=== PATIENT | male | born 1950 | race Caucasian/White ===

== ENCOUNTER → 2018-06-07 | Outpatient (CLI) | payer MEDICARE, OTHER | LOC: GMAM 11:34 | PROVIDERS: ATTEND Family Medicine | DX: Z12.5 Encounter for screening for malignant neoplasm of prostate (principal) ==

== ENCOUNTER 2018-06-13 08:45 | Emergency (ER) | payer MEDICARE, OTHER ==
--- NOTE | 2018-06-13 09:24 | ED.PDOC ---
History of Present Illness - General Chief Complaint: Abdominal Pain Stated Complaint: Abdominal discomfort Time Seen by Provider: 06/13/18 08:55 Source: patient Exam Limitations: no limitations - History of Present Illness Initial Comments: Patient presents with abdominal pain for about 14 hours. Sudden onset, supraumbilical, radiates to LUQ, pressure in nature, constant but intermittent in intensity, no exacerbating nor alleviating factors, associated with decreased appetite, no previous episodes. Last meal was this morning but was less than normal. Last BM was 6 hours ago and was normal. 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 Denies cardiac history. No other complaints. Timing/Duration: other - 14 hours Severity: moderate Improving Factors: nothing Worsening Factors: cold therapy Associated Symptoms: other - see HPI Allergies/Adverse Reactions: Allergies Quinolones Allergy (Verified 06/13/18 08:58) Diarrhea Home Medications: Ambulatory Orders Aripiprazole 5 mg PO DAILY 06/13/18 Duloxetine HCl 60 mg PO BEDTIME 06/13/18 Esomeprazole Magnesium [Nexium] 40 mg PO DAILY 06/13/18 Ondansetron [Zofran Odt] 4 mg PO Q6HR #20 tab 06/13/18 Rosuvastatin Calcium 10 mg PO BEDTIME 06/13/18 Sucralfate Tab [Carafate Tab] 1 gm PO AC #60 tablet 06/13/18 Tramadol HCl 50 mg PO Q6HRS #30 tab 06/13/18 traZODone HCL [Desyrel] 100 mg PO BEDTIME 06/13/18 Review of Systems - Review of Systems Constitutional: States: no symptoms reported EENTM: States: no symptoms reported Respiratory: States: no symptoms reported Cardiology: States: no symptoms reported Gastrointestinal/Abdominal: States: see HPI Genitourinary: States: no symptoms reported Musculoskeletal: States: no symptoms reported Skin: States: no symptoms reported Neurological: States: no symptoms reported Endocrine: States: no symptoms reported Hematologic/Lymphatic: States: no symptoms reported Past Medical History (General) - Patient Medical History Hx Stroke: No Hx Cardiac Disorders: Yes - hyperlipidemia Hx Congestive Heart Failure: No Hx Diabetes: No Hx Gastroesophageal Reflux: Yes - esophageal dilatations in the past - Vaccination History Hx Influenza Vaccination: Yes - 2017 Hx Pneumococcal Vaccination: Yes - 2019 - Social History Hx Tobacco Use: Yes - Smokes a pipe Hx Alcohol Use: Yes - Infrequent use Family Medical History - Family History Father Living Status: Hx Family Hypertension: Yes Hx Family Cancer: Yes - Lung CA Physical Exam - Physical Exam General Appearance: Alert Eye Exam: bilateral normal Ears, Nose, Throat: normal ENT inspection Neck: non-tender, full range of motion, supple Respiratory: lungs clear, normal breath sounds Cardiovascular/Chest: normal peripheral pulses, regular rate, rhythm, irregularly irregular Gastrointestinal/Abdominal: normal bowel sounds, tenderness - TTP just inferior to the sternum. No guarding nor rebound tenderness. Negative Horn's sign. Negative Rovsing's sign. Back Exam: normal inspection, no CVA tenderness Extremity: normal range of motion, non-tender, normal inspection Neurologic: no motor/sensory deficits, alert, normal mood/affect, oriented x 3 Skin Exam: normal color Lymphatic: no adenopathy Progress - Progress Progress: 06/13/18 13:38 Laboratory Tests 06/13/18 06/13/18 06/13/18 09:18 09:18 09:18 WBC 10.0 RBC 5.08 Hgb 16.0 Hct 48.2 MCV 94.7 H MCH 31.4 H MCHC 33.2 RDW 13.6 Plt Count 284 MPV 8.0 Absolute Neuts (auto) 7.10 H Absolute Lymphs (auto) 2.20 Absolute Monos (auto) 0.50 Absolute Eos (auto) 0.10 Absolute Basos (auto) 0.00 Neutrophils % 71.2 Lymphocytes % 22.3 Monocytes % 5.0 Eosinophils % 1.0 Basophils % 0.5 PT 9.9 INR 0.99 PTT (SP) Sodium 134 L Potassium 3.6 Chloride 101 Carbon Dioxide 25 Anion Gap 11.6 L BUN 15 Creatinine 1.04 BUN/Creatinine Ratio 14.4 Random Glucose 124 H Serum Osmolality 270.5 L Calcium 9.1 Magnesium Total Bilirubin 1.0 AST 27 ALT 34 Alkaline Phosphatase 50 Creatine Kinase CK-MB (CK-2) CK-MB (CK-2) % Troponin I B-Natriuretic Peptide Serum Total Protein 7.3 Albumin 4.3 Globulin 3.0 Albumin/Globulin Ratio 1.4 Lipase 38 Urine Color Urine Appearance Urine pH Ur Specific [place] Urine Protein Urine Glucose (UA) Urine Ketones Urine Blood Urine Nitrite Urine Bilirubin Urine Urobilinogen Ur Leukocyte Esterase Urine RBC Urine WBC Ur Epithelial Cells Urine Bacteria 06/13/18 06/13/18 06/13/18 09:19 09:19 10:04 WBC RBC Hgb Hct MCV MCH MCHC RDW Plt Count MPV Absolute Neuts (auto) Absolute Lymphs (auto) Absolute Monos (auto) Absolute Eos (auto) Absolute Basos (auto) Neutrophils % Lymphocytes % Monocytes % Eosinophils % Basophils % PT INR PTT (SP) 26.7 Sodium Potassium Chloride Carbon Dioxide Anion Gap BUN Creatinine BUN/Creatinine Ratio Random Glucose Serum Osmolality Calcium Magnesium 2.0 Total Bilirubin AST ALT Alkaline Phosphatase Creatine Kinase 139 CK-MB (CK-2) 3.6 CK-MB (CK-2) % 2.59 Troponin I < 0.02 B-Natriuretic Peptide 95.5 Serum Total Protein Albumin Globulin Albumin/Globulin Ratio Lipase Urine Color Yellow Urine Appearance Clear Urine pH 8.5 H Ur Specific [place] 1.020 Urine Protein Negative Urine Glucose (UA) Negative Urine Ketones 15 H Urine Blood Trace-intact H Urine Nitrite Negative Urine Bilirubin Negative Urine Urobilinogen 0.2 Ur Leukocyte Esterase Negative Urine RBC 0-1 Urine WBC 0 Ur Epithelial Cells 0 Urine Bacteria 0 EKG read by me showed atrial fibrillation with normal rate. CT chest/ab/pelvis were negative. Atrial fibrillation is likely an incidental finding. Abdominal pain improved with a GI cocktail. I spoke with Dr. Marie about this patient and he agreed to see the patient tomorrow in clinic. It was agreed that no anti-coagulants would be started at this time since we don't have a definitive answer to the abdominal pain. Given the patient's history of drinking large amounts of diet soda, it is most likely gastritis. I have advised the patient to also see his pcp regarding a possible upper endoscopy. RX for Tramadol and Carafate given. Patient to continue on his Nexium. Care instructions given. E.R. warnings given. Questions were elicited and answered. Patient voiced understanding and agreement with the plan. Departure - Departure Clinical Impression: Abdominal pain, Gastritis, Atrial fibrillation Disposition: Discharge to Home or Self Care Condition: Good Departure Forms: ED Discharge - Pt. Copy, Patient Portal Self Enrollment Instructions: DI for Abdominal Pain-Adult, Gastritis (DC) Diet: other - Stop drinking sodas. Decrease amount of foods that are high in fats. No alcohol or tobacco. Referrals: Michael Moralez MD [Primary Care Provider] - 1-2 Weeks Prescriptions: Ondansetron [Zofran Odt] 4 mg PO Q6HR #20 tab Tramadol HCl 50 mg PO Q6HRS #30 tab Sucralfate Tab [Carafate Tab] 1 gm PO AC #60 tablet Home Medications: Ambulatory Orders Aripiprazole 5 mg PO DAILY 06/13/18 Duloxetine HCl 60 mg PO BEDTIME 06/13/18 Esomeprazole Magnesium [Nexium] 40 mg PO DAILY 06/13/18 Ondansetron [Zofran Odt] 4 mg PO Q6HR #20 tab 06/13/18 Rosuvastatin Calcium 10 mg PO BEDTIME 06/13/18 Sucralfate Tab [Carafate Tab] 1 gm PO AC #60 tablet 06/13/18 Tramadol HCl 50 mg PO Q6HRS #30 tab 06/13/18 traZODone HCL [Desyrel] 100 mg PO BEDTIME 06/13/18 Additional Instructions: Go to your appointment with Dr. Marie tomorrow at 12:30. See your regular doctor this week about further evaluation of your stomach pain. Take medications as prescribed. Return to the E.R. for a temperature above 100.4
[2018-06-13] MEDS ORDERED: MORPHINE SULFATE INJ 10 MG/ML VIAL IV ONE (10:34)
--- NOTE | 2018-06-13 10:35 | RAD ---
Study: Single Frontal Radiograph of the Chest. Indication:upper abdominal pain Comparison: None. Impression: Cardiomegaly with mild interstitial edema. No consolidation, pleural effusion, or pneumothorax. No acute osseous abnormality. Electronically signed by: Kunal Landry MD 06/13/2018 10:32 AM [facility]
--- NOTE | 2018-06-13 11:24 | CT ---
EXAM DESCRIPTION: Abdomen/Pelvis w/Contrast CLINICAL HISTORY: abdominal pain COMPARISON: None TECHNIQUE: Postcontrast multidetector CT imaging of the abdomen and pelvis was performed. Multiplanar reconstructions were generated. This exam was performed according to our departmental dose-optimization program which includes automated exposure control, adjustment of the mA and/or kV according to patient size and/or use of iterative reconstruction technique. FINDINGS: Lung bases are unremarkable. No focal liver lesions are demonstrated. Diffuse mild fatty infiltration of the liver is noted with focal fatty sparing along the gallbladder fossa and along the falciform ligament. Gallbladder and biliary system are unremarkable. No pancreatic mass or inflammation is demonstrated. The spleen is not demonstrated. Multiple splenules are seen in the left upper quadrant. Correlate for prior splenic trauma and/or surgery. Bilateral adrenal glands are normal in appearance. Benign exophytic cyst of the right kidney. No hydronephrosis or obstructive uropathy. No abnormal bladder mucosal enhancement. The prostate is unremarkable. Rare diverticula of the redundant colon. No gastrointestinal obstruction or inflammation is demonstrated. Normal appendix. No vascular pathology is evident. Lipomatous hypertrophy of the bilateral inguinal canals. Ventral abdominal wall is intact. No lymphadenopathy, free intraperitoneal fluid or gas. Bilateral L5 pars interarticularis defects without listhesis. No aggressive lytic or blastic osseous lesions. IMPRESSION: No CT findings explain the patient's presenting symptoms. Electronically signed by: Bassam Rey MD 06/13/2018 11:22 AM [employer]
[2018-06-13] MEDS ORDERED: ALUM & MAG HYDROX-SIMETHICONE 30 ML, LIDOCAINE VISCOUS 2% 15 ML PO ONE ×2 (11:50)
[2018-06-13] MEDS ORDERED: ALUM & MAG HYDROX-SIMETHICONE 30 ML UD ONE (11:51)
[2018-06-13] MEDS ORDERED: LIDOCAINE HCL 2% (MOUTH-THROAT) 15 ML UD ONE (11:51)
--- NOTE | 2018-06-13 13:17 | CT ---
EXAM DESCRIPTION: CT angiogram chest with contrast CLINICAL HISTORY: Chest pain. Shortness of breath COMPARISON: None Available. TECHNIQUE: Spiral CT with multiplanar reformatted images. 3-D reconstructions . 75 mL intravenous iodinated nonionic contrast This exam was performed according to our departmental dose-optimization program, which includes automated exposure control, adjustment of the mA and/or kV according to patient size and/or use of iterative reconstruction technique. FINDINGS: Mild dependent atelectasis. No pulmonary edema, alveolar consolidation or effusion. Subcentimeter lymph nodes in the mediastinum, likely reactive Normal contrast enhancement of the cardiac chambers and aorta. No aneurysm or dissection Normal contrast enhancement of the pulmonary arteries. No filling defect to suggest pulmonary embolism No mass or adenopathy in the visualized upper abdomen. No normal spleen. Several small splenules in the left upper quadrant No acute bony abnormality IMPRESSION: Normal CT angiogram chest. No pulmonary embolism Electronically signed by: Michael Jacobo MD 06/13/2018 1:14 PM [employer]
[2018-06-13 14:00] VITALS: BP 168/94; TEMP 99.1; O2SAT 95
== END 2018-06-13 14:02 | disposition home or self-care (01) ==
LOC: ER 08:45
DX: K29.70 Gastritis, unspecified, without bleeding (principal); I48.91 Unspecified atrial fibrillation; E78.5 Hyperlipidemia, unspecified; K21.9 Gastro-esophageal reflux disease without esophagitis; F17.290 Nicotine dependence, other tobacco product, uncomplicated; Z79.899 Other long term (current) drug therapy; Z88.8 Allergy status to other drugs, medicaments and biological substances
CPT/HCPCS: 36415; 71045; 71275; 74177; 80053; 81001; 82550; 82553; 83690; 83735; 83880; 84484; 85025; 85610; 85730; 93005; J2270

== ENCOUNTER → 2018-06-22 | Outpatient (CLI) | payer MEDICARE, OTHER | LOC: GMAM 11:12 | PROVIDERS: ATTEND Family Medicine | DX: I48.2 Chronic atrial fibrillation (principal) ==

== ENCOUNTER → 2018-07-05 | Outpatient (CLI) | payer MEDICARE, OTHER ==
--- NOTE | 2018-07-05 15:56 | CT ---
EXAM DESCRIPTION: Chest w/wo Contrast : Computed Tomography. CLINICAL HISTORY: 67 years Male PNEUMONIA. Recent COMPARISON: CTA of the chest 06/13/2018. TECHNIQUE: Spiral-axial scans at 5 x 5 mm intervals through the lungs and thorax without and with IV contrast. 2.5 x 5 mm lung algorithm axial reconstructions without and with IV contrast. Coronal and sagittal 2.0 Mm reconstructions, post IV contrast. No adverse reactions. Total Exam DLP: 1260.37 mGy-cm. This exam was performed according to our departmental dose-optimization program which includes automated exposure control, adjustment of the mA and/or kV according to patient size and/or use of iterative reconstruction technique; to reduce radiation dose to as low as reasonably achievable (ALARA). Nodule measurements under 10 mm are given as mean value of 3 axes diameters. FINDINGS: Lungs and large airways: Bilateral lower lobe posterior dependent atelectasis. This has decreased since the prior study. Minimal bilateral perihilar peribronchial wall cuffing. No abnormal nodules or masses. No focal infiltrates. Pleural spaces: Bilateral apical pleural thickening and bilateral focal pleural thickening. No bilateral effusion or pneumothorax. Mediastinum and Nancy: No enlarged lymph nodes or soft tissue masses. Great vessels and Heart: Early atherosclerotic calcification in the aortic arch, and in the coronary vessels. Persistent cardinal vein or left superior vena cava emptying into the right atrium.. Minimal narrowing of the distal left innominate vein just distal to this cardinal vein. Also seen on the prior study. Soft tissues of neck base, axillae, and chest wall: Negative. Upper abdomen: No free fluid or free air. No fatty stranding. Included adrenal glands normal size and density. Splenules are visualized but the spleen is absent. Gallbladder partially visualized. Possible small hiatal hernia. Osseous structures: Minimal arthrosis bilateral sternoclavicular joints. Minimal arthrosis right glenohumeral joint. IMPRESSION: 1. Minimal posterior dependent atelectasis in the lower lobes has decreased compared to the prior study. Perihilar peribronchial wall thickening is stable. No mass or abnormal nodule. No focal infiltrate. 2. Remainder the study is unremarkable. Electronically signed by: Bhavin Najera MD 07/05/2018 3:53 PM RN HEART
== END ==
LOC: CT 09:00
PROVIDERS: ATTEND Family Medicine
DX: J18.9 Pneumonia, unspecified organism (principal)

== ENCOUNTER → 2018-08-04 | Outpatient (CLI) | payer MEDICARE, OTHER | LOC: SL 20:56 | PROVIDERS: ATTEND Family Medicine | DX: G47.33 Obstructive sleep apnea (adult) (pediatric) (principal) ==

== ENCOUNTER 2018-12-12 05:45 | Day surgery (SDC) | payer MEDICARE, OTHER ==
[2018-12-12] MEDS ORDERED: PROPARACAINE 0.5% OPHTH SOL 15 ML BTTL ONE (08:44)
[2018-12-12] MEDS ORDERED: MOXIFLOXACIN HCL (OPHTH) 1 DROP DROPS ONE (08:44)
[2018-12-12] MEDS ORDERED: TROP 1%/CYCLOPEN 1%/PHENYL 2% DROPS ONE (08:44)
[2018-12-12] MEDS ORDERED: MIDAZOLAM INJ 2 MG/2 ML VIAL ONE ×2 (09:50→09:54)
[2018-12-12] MEDS ORDERED: PROPARACAINE 0.5% OPHTH SOL 15 ML BTTL RIGHT_EYE ONE (09:52)
[2018-12-12] MEDS ORDERED: LIDOCAINE 1% MPF 2 ML VIAL INJ ONE (10:00)
[2018-12-12] MEDS ORDERED: MOXIFLOXACIN HCL (OPHTH) 1 DROP DROPS RIGHT_EYE ONE ×2 (10:01→10:06)
[2018-12-12] MEDS ORDERED: DEXAMETHASONE 0.1% OPHTH SOL 1 DROP RIGHT_EYE ONE ×2 (10:01→10:06)
[2018-12-12] MEDS ORDERED: TOBRAMYCIN SULF 0.3 % OPHT SOL 1 DROP RIGHT_EYE ONE ×2 (10:01→10:06)
[2018-12-12] MEDS ORDERED: BRIMONIDINE 0.2% OPHTH DROPS RIGHT_EYE ONE ×2 (10:02→10:06)
== END 2018-12-12 10:40 | disposition home or self-care (01) ==
LOC: AMB 05:45
PROVIDERS: ATTEND Ophthalmology
DX: H25.041 Posterior subcapsular polar age-related cataract, right eye (principal); F32.9 Major depressive disorder, single episode, unspecified; K21.9 Gastro-esophageal reflux disease without esophagitis; E66.9 Obesity, unspecified; Z79.899 Other long term (current) drug therapy; Z88.1 Allergy status to other antibiotic agents
CPT/HCPCS: 00142; 66984; J2250

== ENCOUNTER 2019-02-06 05:03 | Day surgery (SDC) | payer MEDICARE, OTHER ==
[2019-02-06] MEDS ORDERED: PROPARACAINE 0.5% OPHTH SOL 15 ML BTTL ONE (05:55)
[2019-02-06] MEDS ORDERED: TROP 1%/CYCLOPEN 1%/PHENYL 2% DROPS ONE (05:55)
[2019-02-06] MEDS ORDERED: MIDAZOLAM INJ 2 MG/2 ML VIAL ONE (07:11)
[2019-02-06] MEDS ORDERED: LIDOCAINE 1% MPF 2 ML VIAL INJ ONE (08:04)
[2019-02-06] MEDS ORDERED: TOBRAMYCIN SULF 0.3 % OPHT SOL 1 DROP LEFT_EYE ONE ×2 (08:08→08:13)
[2019-02-06] MEDS ORDERED: MOXIFLOXACIN HCL (OPHTH) 1 DROP DROPS LEFT_EYE ONE ×2 (08:08→08:12)
[2019-02-06] MEDS ORDERED: BRIMONIDINE 0.2% OPHTH DROPS LEFT_EYE ONE ×2 (08:08→08:13)
[2019-02-06] MEDS ORDERED: DEXAMETHASONE 0.1% OPHTH SOL 1 DROP LEFT_EYE ONE ×2 (08:08→08:13)
== END 2019-02-06 08:53 | disposition home or self-care (01) ==
LOC: AMB 05:03
PROVIDERS: ATTEND Ophthalmology
DX: H25.042 Posterior subcapsular polar age-related cataract, left eye (principal)
CPT/HCPCS: 00142; 66984; J2250

== ENCOUNTER → 2019-10-11 | Outpatient (CLI) | payer MEDICARE, OTHER ==
--- NOTE | 2019-10-12 11:00 | US ---
EXAM DESCRIPTION: Carotid Duplex: ULTRASOUND. CLINICAL HISTORY: 69 years Male CHRONIC ATRIAL FIBRILLATION COMPARISON: None. TECHNIQUE: Transcutaneous scanning utilizing bocanegra-scale and Doppler modes to evaluate the bilateral carotid systems and vertebral arteries. Percentage of diameter of stenosis or no stenosis recorded will be based upon NASCET criteria. FINDINGS: Peak systolic/end diastolic (CM-Sec) CCA Right 111/18 Left 126/27. ICA Right proximal 70/14, distal 74/25. Left proximal 56/15, Distal 52/17. Vertebral Right 33/9 Left 25/7. ECA (PS Only) Right 102 left 139. ICA/CCA peak systolic ratio: Right 0.7 Left 0.4 ICA/CCA end diastolic ratio: Right 1.4 Left 0.6 Vertebral arteries: antegrade flow. Comments: Atherosclerotic calcification in the proximal common carotid vessels, carotid bifurcations, and the proximal ICA vessels bilaterally. Area stenosis in the left mid CCA bulb is 55%. Diameters stenosis 26%. Other regions of stenosis or narrowing bilaterally are less than 50%. IMPRESSION: 1. Doppler evaluation of the bilateral carotid systems and vertebral arteries shows no hemodynamically significant stenoses, (less than 70%). 2. Moderate amount of plaque in the carotid arteries bilaterally. Bilateral vertebral arteries showed antegrade-cephalad flow. Electronically signed by: Bhavin Najera MD 10/12/2019 9:14 AM CDT
== END ==
LOC: US 10:00
PROVIDERS: ATTEND Family Medicine
DX: I65.23 Occlusion and stenosis of bilateral carotid arteries (principal); I48.20 Chronic atrial fibrillation, unspecified; R55 Syncope and collapse

== ENCOUNTER → 2019-10-12 | Outpatient (CLI) | payer MEDICARE, OTHER ==
--- NOTE | 2019-10-13 11:03 | MRI ---
EXAM DESCRIPTION: Brain w/oContrast: MRI. CLINICAL HISTORY: SYNCOPE COMPARISON: None. TECHNIQUE: Multiplanar, high-field MRI unit, multiple diffusion sequences, multiple conventional sequences without contrast. FINDINGS: Bilateral multifocal hyperintense FLAIR and T2-weighted signal in the periventricular white matter and bocanegra/sub-cortical white matter junctions of the cerebral hemispheres. No confluent lesions. Relatively symmetric bilaterally, except for a larger lesion in the inferior left occipital lobe abutting the occipital horn of the left lateral ventricle.. No hemorrhage, no cerebral edema, no midline shift.. Bilateral similar appearing lesions in the anterior basal ganglia. No hemorrhage, no cerebral edema, no mass-effect. Normal signal in the brainstem and cerebellar hemispheres.. Concordance of the diffusion and non-diffusion sequences with no diffusion restriction. Cortical sulci, ventricles, and other CSF spaces, and the subdural spaces are normally configured for patients age. No effacement or displacement. No midline shift. No extra-axial hemorrhage. Normal flow signal void in the major vessels of the port [place], and the venous sinuses. IACs are symmetric bilaterally. Fluid and mucosal thickening in some of the right side mastoid air cells. No mass effect in the bilateral cerebellopontine angles. Pituitary gland occupies approximately half of the sella. Base of the cerebellar tonsils is at the level of the foramen magnum. Mucoperiosteal thickening in the bilateral paranasal sinuses. Possible fluid in posterior left ethmoid air cell. Polyp versus cyst in the bilateral maxillary antra.. The bony calvarium is intact. IMPRESSION: 1. Bilateral multiple white matter lesions in the cerebral hemispheres, including the basal ganglia, most likely related to cerebral microvascular disease or aging. Less likely to represent migraine headaches or vasculitis. No hemorrhage intra-axial or extra-axial. No mass effect or midline shift. 2. Normal noncontrast MRI diffusion study with no evidence of significant ischemia or subacute or acute infarction. 3. Right mastoid inflammation. Paranasal sinus chronic inflammatory changes with possible acute disease. Electronically signed by: Bhavin Najera MD 10/13/2019 11:01 AM CDT
== END ==
LOC: MRI 11:00
PROVIDERS: ATTEND Family Medicine
DX: R55 Syncope and collapse (principal); R90.82 White matter disease, unspecified; H70.001 Acute mastoiditis without complications, right ear; J32.9 Chronic sinusitis, unspecified

== ENCOUNTER → 2020-04-01 | Outpatient (CLI) | payer MEDICARE, OTHER | LOC: GMAM 10:53 | PROVIDERS: ATTEND Family Medicine | DX: E55.9 Vitamin D deficiency, unspecified (principal) ==

== ENCOUNTER → 2020-04-30 | Outpatient (CLI) | payer MEDICARE, OTHER | LOC: GMAM 12:52 | PROVIDERS: ATTEND Family Medicine | DX: E55.9 Vitamin D deficiency, unspecified (principal); Z12.5 Encounter for screening for malignant neoplasm of prostate; E78.2 Mixed hyperlipidemia | CPT/HCPCS: 82306; G0103 ==

== ENCOUNTER → 2020-05-27 | Outpatient (CLI) | payer MEDICARE, OTHER ==
--- NOTE | 2020-05-27 15:18 | RAD ---
EXAM DESCRIPTION: Ankle,Left 3 Views: CR/DR/XR CLINICAL HISTORY: 69 years Male PAIN IN LEFT ANKLE COMPARISON: Left ankle radiographs same day as injury December 2019. TECHNIQUE: 3 VIEWS AP. Lateral. Oblique. Left ankle. FINDINGS: Intramedullary nail in the tibia with 2 distal locking screws. Screw tips entering the medial fibula with radiolucent fusion device inferior to the nail and the distal screw. Minimal radiolucency around the screws in the distal nail. Oblique fracture of the distal left tibia with minimal offset but bridging callus and bone formation at the fracture site. Small bone fragments medial and lateral to the fracture site. Lateral left fibular and lateral malleolar plate with screws. Plate is closely approximated to the lateral fibula. Ankle mortise is congruent. Calcification in the interosseous membrane distally. IMPRESSION: ORIF of distal left tibia and fibula fracture. Ankle mortise is congruent. Hardware intact in the inferior tibia with minimal radiolucency around the distal screws and nail. Hardware intact on the left fibula. Progressive callus formation abutting the distal oblique tibial fracture. Electronically signed by: Bhavin Najera MD 05/27/2020 3:17 PM [facility]
== END ==
LOC: RAD 08:07
PROVIDERS: ATTEND Orthopaedic Surgery
DX: S82.302D Unspecified fracture of lower end of left tibia, subsequent encounter for closed fracture with routine healing (principal); S82.832D Other fracture of upper and lower end of left fibula, subsequent encounter for closed fracture with routine healing; Z98.890 Other specified postprocedural states